=== PATIENT | female | born 1965 | race Caucasian/White ===

== ENCOUNTER 2022-10-08 19:20 | Emergency (ER) | payer BC, SELFPAY ==
[2022-10-08 19:29] VITALS: BP 142/82; PULSE 79; RESP 14; TEMP 37.3; O2SAT 100
--- NOTE | 2022-10-08 19:31 | ED.EYEPROB ---
HPI - Eye Problem General Chief complaint: Eye Problems Stated complaint: Eye Problem Source: patient and RN notes reviewed Limitations: no limitations History of Present Illness HPI Narrative: patient is a 57-year-old female who presents to the [facility] with complaints of left eye redness and drainage starting this morning upon waking. Patient states that the drainage was worse in the morning but has continued throughout the day. She reports mild blurriness to the left eye. Denies injury to the eye. Denies recent fever. Related Data Allergies Allergy/AdvReac Type Severity Reaction Status Date / Time No Known Allergies Allergy Verified 10/08/22 19:38 Review of Systems Review of Systems: CONSTITUTIONAL: Denies fever, chills, or sweats. EYES: Left eye redness and drainage. ENT: Denies otalgia and sore throat CARDIOVASCULAR: Denies chest pain, palpitations, or edema. RESPIRATORY: Denies cough or dyspnea. GASTROINTESTINAL: Denies abdominal pain, nausea, vomiting, or diarrhea. GENITOURINARY: Denies dysuria or hematuria. SKIN: Denies rash or itching. MUSCULOSKELETAL: Denies back pain, joint pain, or myalgia. NEUROLOGIC: Denies headache, numbness, or weakness. Pertinent positives per HPI. PMFSH Comments At the time of my signature, I reviewed and agree with the nursing past medical, surgical, social, and family history. There is no relevant family history pertinent to the patient complaint. Exam Narrative: GENERAL: This is a well-nourished, well-developed patient, in no apparent distress. HEAD: normocephalic, atraumatic. EYES: PERRL. Sclera clear/white in right; erythema to left with drainage noted. Vision is grossly intact. EARS: External ears normal, auditory canals clear and without drainage. Hearing grossly intact. NOSE: External nose normal with no obvious nasal discharge, nares without redness, no rhinorrhea. THROAT: Mucous membranes moist, posterior pharynx clear. NECK: Neck supple, non-tender without lymphadenopathy, masses or thyromegaly. CARDIOVASCULAR: Regular rate and rhythm without murmurs, gallops, or rubs. RESPIRATORY: Clear to auscultation. Breath sounds equal bilaterally. No wheezes, rales, or rhonchi. GASTROINTESTINAL: Abdomen soft, non-tender, nondistended. Bowel sounds are active. No hepato-splenomegaly, or palpable masses. No guarding. SKIN: warm, intact with no suspicious lesions or rash, good texture and turgor. NEURO: awake, alert, and oriented to person, place and time. There were no obvious focal neurologic abnormalities. Course Course Level of Care: Express Care Visit Vital Signs Vital signs: Vital Signs Temperature 99.2 F 10/08/22 19:29 Pulse Rate 79 10/08/22 19:29 Respiratory Rate 14 10/08/22 19:29 Blood Pressure 142/82 H 10/08/22 19:29 Pulse Oximetry 100 10/08/22 19:29 Oxygen Delivery Room Air 10/08/22 19:29 Temperature 99.2 F 10/08/22 19:29 Pulse Rate 79 10/08/22 19:29 Respiratory Rate 14 10/08/22 19:29 Blood Pressure 142/82 H 10/08/22 19:29 Pulse Oximetry 100 10/08/22 19:29 Oxygen Delivery Room Air 10/08/22 19:29 Reviewed MDM - Eye Problem MDM Narrative Medical decision making narrative: Your exam today shows Conjunctivitis, You have been given a prescription for eye drops. Use the eye drops as instructed. If you are not better in two (2) days, you need to follow up with an blue line operator. Do not rub the eye or put anything else in the eye, this can cause abrasions (scratches) on the eye or lead to vision loss. Also it is important not to touch the tube or tip of drops to the eye, as this can cause further infection. Wash your hands very well before instilling the medication. Handwashing can help prevent the spread of disease. Follow up with PCP in 7-10 days Return to ER for problems Contact [facility] if you need an Water Quality Control Engineer [] Differential Diagnosis Differential diagnosis: Likely corneal abras
== END 2022-10-08 19:44 | disposition home or self-care (01) ==
PROVIDERS: Emergency Provider Nurse Practitioner; PCP Internal Medicine
DX: H10.32 Unspecified acute conjunctivitis, left eye (principal)
CPT/HCPCS: 99213; G0463